=== PATIENT | female | born 1980 ===

== ENCOUNTER 2021-07-27 15:44 | Emergency (ER) | payer OTHER ==
[~2021-07-27] VITALS: Ht 165.1 cm; Wt 57.2 kg
[~2021-07-27 15:44] MED LIST: ZANTAC300 MG
[2021-07-27] MEDS ORDERED: NORFLEX100MG PO (18:48)
[2021-07-27] MEDS ORDERED: MEDROLPACK PO (18:48)
== END 2021-07-27 19:47 | disposition home or self-care (01) ==
LOC: ER 15:44
DX: M62.838 Other muscle spasm (principal)